=== PATIENT | male | born 1975 | race African-American/Black ===

== ENCOUNTER 2017-10-09 10:13 | Emergency (ER) | payer OTHER ==
[~2017-10-09] VITALS: Ht 182.9 cm; Wt 85.4 kg
[~2017-10-09 10:13] MED LIST: DIVA500T35 PO; LEVE500T53 PO; LORA0.5T2 PO; PHENY100 PO; QUET200T PO; RISP1 PO
[2017-10-09 11:07] LABS: PHENYTOIN (DILANTIN) 8.5 mcg/mL (10.0-20.0)
[2017-10-09] MEDS ORDERED: PHENYTOIN SODIUM 300 MG in SODIUM CHLORIDE 0.9% 100 ML IV ONE (11:15)
[2017-10-09] MEDS ORDERED: PHENYTOIN SODIUM 100 MG ER CAPSULE PO ONE (11:30)
[2017-10-09 13:25] VITALS: BP 100/62
== END 2017-10-09 13:28 | disposition home or self-care (01) ==
LOC: EMS 10:14
DX: G40.909 Epilepsy, unspecified, not intractable, without status epilepticus (principal)
CPT/HCPCS: 99284; J1165; J7050

== ENCOUNTER 2022-03-31 23:41 | Emergency (ER) | payer MEDICARE, OTHER ==
[~2022-03-31] VITALS: Ht 177.8 cm; Wt 72.0 kg
[~2022-03-31 23:41] MED LIST changes: +DIVA-112 PO; -DIVA500T35 PO; +LEVE500T20 PO; -LEVE500T53 PO; +LORA-999 PO; -LORA0.5T2 PO; -RISP1 PO; +RISP1TAB48 PO
[2022-04-01] MEDS ORDERED: PERTUSS(ACELL),DIPH,TET VAC/PF 0.5 ML SYRINGE IM. ONE
[2022-04-01] MEDS ORDERED: BENZ1TAB96 PO (00:04)
[2022-04-01] MEDS ORDERED: QUET100T34 PO (00:04)
[2022-04-01] MEDS ORDERED: HYDR-4808 PO (00:04)
[2022-04-01] MEDS ORDERED: QUET300T19 PO (00:04)
[2022-04-01] MEDS ORDERED: CHLO50TA53 PO (00:06)
[2022-04-01] MEDS ORDERED: TRAZ-257 PO (00:06)
[2022-04-01 01:03] LABS: PHENYTOIN (DILANTIN) 12.2 mcg/mL (10.0-20.0)
[2022-04-01] MEDS ORDERED: DIVALPROEX SODIUM 250 MG DR TABLET PO ONE (01:15)
[2022-04-01] MEDS ORDERED: PENI500T2 PO (01:32)
[2022-04-01 01:41] VITALS: BP 122/78
== END 2022-04-01 01:50 | disposition home or self-care (01) ==
LOC: EMS 23:48
DX: G40.909 Epilepsy, unspecified, not intractable, without status epilepticus (principal); S01.511A Laceration without foreign body of lip, initial encounter; S01.111A Laceration without foreign body of right eyelid and periocular area, initial encounter; T42.6X6A Underdosing of other antiepileptic and sedative-hypnotic drugs, initial encounter; I34.0 Nonrheumatic mitral (valve) insufficiency; G80.9 Cerebral palsy, unspecified; Z86.69 Personal history of other diseases of the nervous system and sense organs; X58.XXXA Exposure to other specified factors, initial encounter; Y93.89 Activity, other specified; Y92.89 Other specified places as the place of occurrence of the external cause; Y99.8 Other external cause status
CPT/HCPCS: 80164; 80185; 82962; 90471; 90715; 99283

== ENCOUNTER 2022-10-16 10:35 | Emergency (ER) | payer MEDICARE, OTHER ==
[~2022-10-16] VITALS: Ht 182.9 cm; Wt 76.4 kg
[~2022-10-16 10:35] MED LIST changes: +BENZ1TAB96 PO; +CHLO50TA53 PO; +HYDR-4808 PO; +PENI500T2 PO; +QUET100T34 PO; -QUET200T PO; +QUET300T19 PO; +TRAZ-257 PO
[2022-10-16] MEDS ORDERED: PERTUSS(ACELL),DIPH,TET VAC/PF 0.5 ML SYRINGE IM. ONE (12:15)
[2022-10-16 13:07] VITALS: BP 110/60
== END 2022-10-16 14:30 | disposition home or self-care (01) ==
LOC: EMS 10:50
DX: S01.81XA Laceration without foreign body of other part of head, initial encounter (principal); F20.9 Schizophrenia, unspecified; R56.9 Unspecified convulsions; G80.9 Cerebral palsy, unspecified; X58.XXXA Exposure to other specified factors, initial encounter; Y93.89 Activity, other specified; Y92.89 Other specified places as the place of occurrence of the external cause; Y99.8 Other external cause status
CPT/HCPCS: 90471; 90715; 99283

== ENCOUNTER 2022-10-20 22:45 | Emergency (ER) | payer MEDICARE, OTHER ==
[~2022-10-20] VITALS: Ht 172.7 cm; Wt 77.0 kg
[2022-10-21] MEDS ORDERED: TOBRAMYCIN/DEXAMETHASONE 5 ML OPHTHALMIC SUSPENSION OU ONE (00:15)
[2022-10-21 02:10] VITALS: BP 113/72
== END 2022-10-21 02:45 | disposition home or self-care (01) ==
LOC: EMS 22:47
DX: H10.33 Unspecified acute conjunctivitis, bilateral (principal); F20.9 Schizophrenia, unspecified; G80.9 Cerebral palsy, unspecified
CPT/HCPCS: 80164; 80185; 99283

== ENCOUNTER 2023-01-06 18:38 | Inpatient (IN) | payer MEDICARE, MEDICAID ==
[~2023-01-06] VITALS: Ht 177.8 cm; Wt 86.0 kg
[~2023-01-06 18:38] MED LIST changes: +BENZ1TAB84 PO; -BENZ1TAB96 PO; +PHEN100C10 PO; -PHENY100 PO
[2023-01-06] MEDS ORDERED: CHLO25TA70 PO (18:52)
[2023-01-06] MEDS ORDERED: LEVO330T7 PO (18:52)
[2023-01-06] MEDS ORDERED: CLON0.5T4 PO (18:52)
[2023-01-06] MEDS ORDERED: LEVE750T10 PO (18:52)
[2023-01-06] MEDS ORDERED: LORazepam 2 MG/ML VIAL IM ONE (20:45)
[2023-01-06] MEDS ORDERED: DiphenhydrAMINE HCL 50 MG/ML VIAL IM ONE (20:45)
[2023-01-06] MEDS ORDERED: HALOPERIDOL LACTATE 5 MG/ML VIAL IM ONE ×2 (20:45→22:45)
[2023-01-06] MEDS ORDERED: PROMETHAZINE HCL 25 MG TABLET PO PRN (21:15)
[2023-01-06] MEDS ORDERED: GuaiFENesin/D-METHORPHAN [SUGAR-FREE] 200-20MG/10 ML SYRUP UDCUP PO PRN (21:15)
[2023-01-06] MEDS ORDERED: TUBERCULIN, PURIFIED PROTEIN DERIVATIVE 5 TU/0.1 ML SYRINGE ID ONE (21:15)
[2023-01-06] MEDS ORDERED: QUEtiapine FUMARATE 100 MG TABLET PO PRN (21:15)
[2023-01-06] MEDS ORDERED: ACETAMINOPHEN 325 MG TABLET PO PRN (21:15)
[2023-01-06] MEDS ORDERED: MAGNESIUM HYDROXIDE SUSPENSION 30 ML UDCUP PO PRN (21:15)
[2023-01-06] MEDS ORDERED: MAG HYDROX/AL HYDROX/SIMETH ES 30 ML SUSPENSION UDCUP PO PRN (21:15)
[2023-01-06] MEDS ORDERED: ESZOPICLONE 3 MG TABLET PO PRN (21:15)
[2023-01-06] MEDS ORDERED: LOPERAMIDE HCL 2 MG CAPSULE PO PRN (21:15)
[2023-01-06 23:42] LABS: ANION GAP 9 mmol/L (8-16); CALCIUM, TOTAL 8.9 mg/dL (8.8-10.5); CARBON DIOXIDE 28 mmol/L (22-29); CHLORIDE 103 mmol/L (98-107); CREATININE 0.93 mg/dL (0.60-1.30); GLOMERULAR FILTR. RATE CALC > 60 mL/min (>60); GLUCOSE,RANDOM 95 mg/dL (70-110); POTASSIUM 3.2 mmol/L (3.5-5.1); SODIUM SERUM 140 mmol/L (136-145)
[2023-01-06 23:48] LABS: ALANINE AMINOTRANSFERASE 9 U/L (12-78); ALBUMIN 3.5 g/dL (3.4-5.0); ALKALINE PHOSPHATASE 97 U/L (46-116); ASPARTATE AMINOTRANSFERASE 15 U/L (15-37); BILIRUBIN,TOTAL 0.5 mg/dL (0.1-1.0); PHENYTOIN (DILANTIN) 13.3 mcg/mL (10.0-20.0); TOTAL PROTEIN, SERUM 7.5 g/dL (6.4-8.2); VALPROIC ACID 26 mcg/mL (50-100)
[2023-01-06 23:51] LABS: COVID AG,FIA SOURCE NASOPHARYNGEAL
[2023-01-06 23:53] LABS: BASOPHILS % (AUTO) 0.2 % (0.0-2.0); EOSINOPHILS % (AUTO) 0.7 % (1.0-6.0); HEMOGLOBIN 12.7 g/dL (13.5-17.5); LYMPHOCYTES # (AUTO) 2.6 K/uL (1.0-4.8); LYMPHOCYTES % (AUTO) 24.4 % (22.0-44.0); MEAN CORPUSCULAR HEMOGLOBIN 29.9 pg (26.0-34.0); MEAN CORPUSCULAR HGB CONC 32.5 G/dL (31.0-37.0); MEAN CORPUSCULAR VOLUME 92 fL (80-100); MONOCYTES # (AUTO) 1.2 K/uL (0.1-1.0); MONOCYTES % (AUTO) 11.2 % (2.0-9.0); NEUTROPHILS # (AUTO) 6.9 K/uL (1.8-7.7); NEUTROPHILS % (AUTO) 63.5 % (40.0-70.0); PLATELET COUNT (AUTO) 131 K/uL (150-450); RED BLOOD CELL COUNT(AUTO) 4.24 MIL/uL (4.50-5.90); RED CELL DISTRIBUTION WIDTH 13.7 % (11.5-14.5)
[2023-01-07 00:32] LABS: HEMOGLOBIN A1C 5.2 % (3.8-5.6)
[2023-01-07 00:35] LABS: CHOL/HDL RATIO 2.5 (4.2-7.3); FREE T4 (FREE THYROXINE) 0.68 ng/dL (0.76-1.46)
[2023-01-07] MEDS: OLANZapine 5 MG RAPDIS TABLET PO PRN ×3 (04:51→18:29)
[2023-01-07] MEDS ORDERED: POTASSIUM CHLORIDE 20 MEQ ER TABLET PO ONE (10:00)
[2023-01-07] MEDS: ClonazePAM 0.5 MG TABLET PO SCH (10:11)
[2023-01-07] MEDS: THIAMINE 100 MG TABLET PO SCH ×2 (10:11→21:00)
[2023-01-07] MEDS: FOLIC ACID 1 MG TABLET PO SCH (10:11)
[2023-01-07] MEDS: MULTIVITAMINS WITH MINERALS, THERAPEUTIC TABLET PO SCH (10:11)
[2023-01-07] MEDS: LevETIRAcetam 250 MG TABLET PO SCH (10:11)
[2023-01-07] MEDS: OMEGA-3/DHA/EPA/FISH OIL 1,000 MG CAPSULE PO SCH (10:11)
[2023-01-07] MEDS: DIVALPROEX SODIUM 500 MG ER TABLET PO SCH ×2 (10:11→23:14)
[2023-01-07] MEDS: QUEtiapine FUMARATE 25 MG TABLET PO SCH ×3 (10:11→23:13)
[2023-01-07] MEDS: LORazepam 2 MG TABLET PO PRN (10:44)
[2023-01-07] MEDS ORDERED: CHLO50TA61 PO (11:07)
[2023-01-07] MEDS ORDERED: QUEtiapine FUMARATE 100 MG TABLET PO SCH (21:00)
[2023-01-07] MEDS: TraZODone HCL 100 MG TABLET PO SCH (23:06)
[2023-01-07] MEDS: PHENYTOIN SODIUM 100 MG ER CAPSULE PO SCH (23:08)
[2023-01-07] MEDS: MELATONIN 5 MG TABLET PO SCH (23:14)
[2023-01-08 01:15] VITALS: BP 102/60
[2023-01-08] MEDS: LORazepam 2 MG TABLET PO PRN ×4 (05:46→20:55)
[2023-01-08] MEDS: OLANZapine 5 MG RAPDIS TABLET PO PRN (05:47)
[2023-01-08] MEDS: ClonazePAM 0.5 MG TABLET PO SCH (08:01)
[2023-01-08] MEDS: OMEGA-3/DHA/EPA/FISH OIL 1,000 MG CAPSULE PO SCH (08:01)
[2023-01-08] MEDS: THIAMINE 100 MG TABLET PO SCH ×2 (08:02→16:10)
[2023-01-08] MEDS: DIVALPROEX SODIUM 500 MG ER TABLET PO SCH ×2 (08:02→16:09)
[2023-01-08] MEDS: FOLIC ACID 1 MG TABLET PO SCH (08:03)
[2023-01-08] MEDS: MULTIVITAMINS WITH MINERALS, THERAPEUTIC TABLET PO SCH (08:03)
[2023-01-08] MEDS: QUEtiapine FUMARATE 25 MG TABLET PO SCH ×3 (08:05→16:09)
[2023-01-08] MEDS ORDERED: LevOCARNitine 200 MG/ML 5 ML VIAL PO SCH (09:00)
[2023-01-08] MEDS: LevETIRAcetam 250 MG TABLET PO SCH (09:00)
[2023-01-08] MEDS: HydrOXYzine PAMOATE 50 MG CAPSULE PO PRN ×2 (16:09→20:56)
[2023-01-08] MEDS: TraZODone HCL 100 MG TABLET PO SCH (20:54)
[2023-01-08] MEDS: PHENYTOIN SODIUM 100 MG ER CAPSULE PO SCH (20:54)
[2023-01-08] MEDS: QUEtiapine FUMARATE 100 MG TABLET PO SCH (20:55)
[2023-01-08] MEDS: MELATONIN 5 MG TABLET PO SCH (20:55)
[2023-01-08] MEDS ORDERED: POTASSIUM CHLORIDE 20 MEQ ER TABLET PO ONE (23:00)
[2023-01-09] MEDS: ClonazePAM 0.5 MG TABLET PO SCH (08:07)
[2023-01-09] MEDS: MULTIVITAMINS WITH MINERALS, THERAPEUTIC TABLET PO SCH (08:07)
[2023-01-09] MEDS: OMEGA-3/DHA/EPA/FISH OIL 1,000 MG CAPSULE PO SCH (08:07)
[2023-01-09] MEDS: FOLIC ACID 1 MG TABLET PO SCH (08:08)
[2023-01-09] MEDS: DIVALPROEX SODIUM 500 MG ER TABLET PO SCH ×2 (08:08→17:01)
[2023-01-09] MEDS: THIAMINE 100 MG TABLET PO SCH ×2 (08:08→17:01)
[2023-01-09] MEDS: LevETIRAcetam 250 MG TABLET PO SCH (08:19)
[2023-01-09] MEDS: QUEtiapine FUMARATE 25 MG TABLET PO SCH ×3 (08:37→17:02)
[2023-01-09] MEDS ORDERED: CLON-592 PO (15:04)
[2023-01-09] MEDS ORDERED: QUET25TA36 PO (15:04)
[2023-01-09] MEDS ORDERED: OMEG-135 PO (15:04)
[2023-01-09] MEDS ORDERED: QUET100T34 PO (15:04)
[2023-01-09] MEDS ORDERED: DIVA500T69 PO (15:04)
[2023-01-09] MEDS ORDERED: LEVE250T PO (15:04)
[2023-01-09] MEDS ORDERED: PHEN100C23 PO (15:04)
[2023-01-09] MEDS ORDERED: TRAZ-257 PO (15:04)
[2023-01-09] MEDS ORDERED: MELA5TAB40 PO (15:04)
[2023-01-09] MEDS: LORazepam 2 MG TABLET PO PRN ×2 (17:02→21:14)
[2023-01-09] MEDS: QUEtiapine FUMARATE 100 MG TABLET PO SCH (21:14)
[2023-01-09] MEDS: PHENYTOIN SODIUM 100 MG ER CAPSULE PO SCH (21:14)
[2023-01-09] MEDS: TraZODone HCL 100 MG TABLET PO SCH (21:14)
[2023-01-09] MEDS: MELATONIN 5 MG TABLET PO SCH (21:14)
[2023-01-09 23:08] VITALS: BP 106/72
[2023-01-10] MEDS: OMEGA-3/DHA/EPA/FISH OIL 1,000 MG CAPSULE PO SCH (08:39)
[2023-01-10] MEDS: MULTIVITAMINS WITH MINERALS, THERAPEUTIC TABLET PO SCH (08:39)
[2023-01-10] MEDS: THIAMINE 100 MG TABLET PO SCH (08:39)
[2023-01-10] MEDS: QUEtiapine FUMARATE 25 MG TABLET PO SCH (08:39)
[2023-01-10] MEDS: FOLIC ACID 1 MG TABLET PO SCH (08:39)
[2023-01-10] MEDS: LevETIRAcetam 250 MG TABLET PO SCH (08:39)
[2023-01-10] MEDS: ClonazePAM 0.5 MG TABLET PO SCH (08:39)
[2023-01-10] MEDS: DIVALPROEX SODIUM 500 MG ER TABLET PO SCH (08:40)
[2023-01-10 10:24] LABS: POTASSIUM 4.4 mmol/L (3.5-5.1)
[2023-01-10 11:30] VITALS: BP 93/59
== END 2023-01-10 11:45 | disposition home or self-care (01) | DRG 885 ==
LOC: EMS 18:39 → B3A 01-08 00:01
PROVIDERS: ADMIT Psychiatry & Neurology Psychiatry; ATTEND Psychiatry & Neurology Psychiatry
PROC: GZHZZZZ Group Psychotherapy (ICD-10-PCS; principal; 2023-01-08)
PROC: GZ51ZZZ Individual Psychotherapy, Behavioral (ICD-10-PCS; 2023-01-08)
DX: F20.9 Schizophrenia, unspecified (principal); F71 Moderate intellectual disabilities; F29 Unspecified psychosis not due to a substance or known physiological condition; Z20.822 Contact with and (suspected) exposure to COVID-19; F41.9 Anxiety disorder, unspecified; G40.909 Epilepsy, unspecified, not intractable, without status epilepticus; K21.9 Gastro-esophageal reflux disease without esophagitis; K59.00 Constipation, unspecified; G47.00 Insomnia, unspecified; F90.9 Attention-deficit hyperactivity disorder, unspecified type; R32 Unspecified urinary incontinence; Z55.9 Problems related to education and literacy, unspecified; Z59.9 Problem related to housing and economic circumstances, unspecified; Z63.9 Problem related to primary support group, unspecified; Z65.3 Problems related to other legal circumstances; Z79.899 Other long term (current) drug therapy; Z78.1 Physical restraint status
CPT/HCPCS: 80053; 80061; 80164; 80185; 83036; 84132; 84439; 84443; 85025; 86592; 87081; 96372; 99291; G0480; G0482; J1200; J1630; J2060; Q9967

== ENCOUNTER 2024-09-15 11:24 | Emergency (ER) | payer MEDICARE, OTHER ==
[~2024-09-15] VITALS: Ht 170.2 cm; Wt 79.1 kg
[~2024-09-15 11:24] MED LIST changes: -BENZ1TAB84 PO; -CHLO50TA53 PO; -DIVA-112 PO; +DIVA500T69 PO; -HYDR-4808 PO; +LEVE250T PO; -LEVE500T20 PO; -LORA-999 PO; +MELA5TAB40 PO; +OMEG-135 PO; -PENI500T2 PO; -PHEN100C10 PO; +PHEN100C23 PO; -QUET100T34 PO; +QUET200T30 PO; -QUET300T19 PO; -RISP1TAB48 PO
[2024-09-15 11:37] VITALS: TEMP 97.9
[2024-09-15] MEDS: DiphenhydrAMINE HCL 50 MG/ML VIAL IM ONE (12:14)
[2024-09-15] MEDS: HALOPERIDOL LACTATE 5 MG/ML VIAL IM ONE (12:14)
[2024-09-15] MEDS: LORazepam 2 MG/ML VIAL IM ONE (12:26)
[2024-09-15] MEDS: LORazepam 2 MG/ML VIAL IVP ONE ×2 (13:36→13:53)
[2024-09-15 14:00] VITALS: BP 136/77; PULSE 71; RESP 17; O2SAT 98
[2024-09-15] MEDS: LIDOCAINE 1%/EPI 1:200,000/PF 10 ML VIAL SQ ONE (14:54)
== END 2024-09-15 16:26 | disposition still patient (30) ==
LOC: EMS 11:24
DX: S01.81XA Laceration without foreign body of other part of head, initial encounter (principal); F20.9 Schizophrenia, unspecified; Z79.899 Other long term (current) drug therapy; W19.XXXA Unspecified fall, initial encounter; Y93.89 Activity, other specified; Y92.89 Other specified places as the place of occurrence of the external cause; Y99.8 Other external cause status
CPT/HCPCS: 99285; 70450; 96374; 72125; 96372; J1200; J1630; J3490; J2060

== ENCOUNTER 2025-05-23 10:08 | Emergency (ER) | payer MEDICARE, OTHER ==
[~2025-05-23] VITALS: Ht 182.9 cm; Wt 54.5 kg
[2025-05-23 10:16] VITALS: TEMP 97.5
[2025-05-23] MEDS: LORazepam 2 MG/ML VIAL IM ONE (13:42)
[2025-05-23 15:10] VITALS: BP 113/76; PULSE 51; RESP 18; O2SAT 100
== END 2025-05-23 16:11 | disposition home or self-care (01) ==
LOC: EMS 10:08
DX: S01.111A Laceration without foreign body of right eyelid and periocular area, initial encounter (principal); F20.9 Schizophrenia, unspecified; G40.909 Epilepsy, unspecified, not intractable, without status epilepticus; Z79.899 Other long term (current) drug therapy; W01.198A Fall on same level from slipping, tripping and stumbling with subsequent striking against other object, initial encounter; Y93.89 Activity, other specified; Y92.89 Other specified places as the place of occurrence of the external cause; Y99.8 Other external cause status
CPT/HCPCS: 99283; 96372; J2060